=== PATIENT | female | born 1990 ===

== ENCOUNTER 2022-02-22 15:20 | Inpatient (IN) ==
[2022-02-18 12:40] LABS: Glucose,Urine (UA) Negative (Negative); Ketones,Urine Negative (Negative); Nitrite,Urine Negative (Negative); Protein,Urine Negative (Negative); Urine Appearance Clear (Clear); Urine Color Yellow (Yellow)
[2022-02-18 12:41] LABS: Bilirubin,Urine Negative (Negative); Blood, Urine Moderate mg/dL (Negative); Urine Urobilinogen 0.2 eU/dL (<2.0)
[2022-02-18 12:45] LABS: Bacteria,Urine Occasional /HPF (Few); Mucus,Urine Occasional /LPF (Occasional); RBC,Urine 9 /HPF (0-4); Squamous Epithelial Cell,Urine Occasional /HPF (0-10)
[2022-02-18 12:50] LABS: Basophils % 0.4 % (0.0-0.8); Eosinophils % 0.8 % (0.00-10.9); Hematocrit 22.4 VOL% (35.7-47.0); Hemoglobin 6.5 GM/DL (12.0-16.0); Immature Granulocytes % 0.2 %; Immature Granulocytes Absolute 0.01 #; Lymphocytes # 2.1 10*3/uL (1.4-4.0); Lymphocytes % 42.8 % (21.3-54.2); Mean Corpuscular Volume 75.7 FL (87-102); Mean Platelet Volume 8.9 FL (9.6-12.0); Monocytes # 0.4 10*3/uL (0.11-0.8); Monocytes % 7.7 % (1.7-12.7); Neutrophils % 48.1 % (38.7-73.9); Platelet Count 326 T/CUMM (130-400); Red Blood Count 2.96 MC/CUMM (3.8-5.5); Red Cell Distribution Width 15.5 % (9.3-17.3); White Blood Count 4.9 T/CUMM (4-12)
[2022-02-18 13:29] LABS: Albumin 3.7 G/DL (3.4-5.0); Bilirubin,Total 0.4 MG/DL (0.20-1.00); Calcium 8.3 MG/DL (8.5-10.1); Osmolality,Calculated 280.1 MOS/KG (273-304); Potassium 3.4 MMOL/L (3.5-5.1); Risk Ratio 5.81; Total Protein 7.1 G/DL (6.4-8.2); VLDL Cholesterol 29.4 MG/DL
[2022-02-18 14:16] LABS: HIV Antigen/Antibody Result Nonreactive (Nonreactive)
[2022-02-22] MEDS ORDERED: SODIUM CHLORIDE 0.9% 1,000 ML IV PRN (15:58)
[2022-02-22 16:33] LABS: Basophils % 0.5 % (0.0-0.8); Eosinophils # 0.1 10*3/uL (0.0-0.87); Eosinophils % 1.9 % (0.00-10.9); Hematocrit 23.6 VOL% (35.7-47.0); Hemoglobin 6.7 GM/DL (12.0-16.0); Immature Granulocytes % 0.5 %; Immature Granulocytes Absolute 0.02 #; Lymphocytes # 1.7 10*3/uL (1.4-4.0); Lymphocytes % 38.2 % (21.3-54.2); Mean Corpuscular HGB Conc 28.4 GM/DL (32-36); Mean Corpuscular Volume 75.2 FL (87-102); Mean Platelet Volume 9.3 FL (9.6-12.0); Monocytes # 0.3 10*3/uL (0.11-0.8); Monocytes % 6.9 % (1.7-12.7); Platelet Count 325 T/CUMM (130-400); Red Blood Count 3.14 MC/CUMM (3.8-5.5); Red Cell Distribution Width 15.6 % (9.3-17.3); White Blood Count 4.3 T/CUMM (4-12)
[2022-02-22 17:02] LABS: Anisocytosis 1+; Hypochromia 1+; Polychromasia 1+
[2022-02-22 17:03] LABS: Elliptocytes Few; Platelet Estimate Adequate
[2022-02-23 08:27] LABS: Eosinophils # 0.2 10*3/uL (0.0-0.87)
[2022-02-23 08:35] LABS: Basophils % 0.2 % (0.0-0.8); Eosinophils % 3.3 % (0.00-10.9); Hematocrit 32.6 VOL% (35.7-47.0); Immature Granulocytes % 0.4 %; Immature Granulocytes Absolute 0.02 #; Lymphocytes # 2.1 10*3/uL (1.4-4.0); Lymphocytes % 46.2 % (21.3-54.2); Mean Corpuscular HGB Conc 30.4 GM/DL (32-36); Mean Corpuscular Volume 79.9 FL (87-102); Mean Platelet Volume 9.6 FL (9.6-12.0); Monocytes # 0.3 10*3/uL (0.11-0.8); Monocytes % 7.4 % (1.7-12.7); NRBC # 0.03 10*3/uL; Neutrophils % 42.5 % (38.7-73.9); Platelet Count 303 T/CUMM (130-400); White Blood Count 4.6 T/CUMM (4-12)
[2022-02-23 08:44] LABS: Hemoglobin 9.9 GM/DL (12.0-16.0); Red Blood Count 4.08 MC/CUMM (3.8-5.5)
[2022-02-23] MEDS ORDERED: SODIUM PHOSPHATE ENEMA 133 ML BOTTLE RECTAL ONE (21:02)
[2022-02-23] MEDS ORDERED: BISACODYL 10 MG SUPP RECTAL ONE (23:59)
[2022-02-24] MEDS: SIMETHICONE CHEW 80 MG TABLET PO PRN (00:12)
[2022-02-24] MEDS: PANTOPRAZOLE 40 MG TABLET PO SCH ×2 (00:27→08:30)
[2022-02-24] MEDS: LACTATED RINGERS 1,000 ML IV SCH ×3 (06:10→20:49)
[2022-02-24] MEDS ORDERED: AMPICILLIN/SULBACTAM 3,000 MG in SODIUM CHLORIDE 0.9% 100 ML IV ONE (08:00)
[2022-02-24] MEDS: DOCUSATE SODIUM 100 MG CAPSULE PO SCH ×2 (08:30→21:59)
[2022-02-24] MEDS ORDERED: LIDOCAINE 2% 5 ML VIAL ONE ×2 (12:58→14:08)
[2022-02-24] MEDS ORDERED: BUPIVACAINE MPF 0.5% 30 ML VIAL ONE (12:58)
[2022-02-24] MEDS ORDERED: fentaNYL 100 MCG/2 ML VIAL ONE ×3 (12:59→17:19)
[2022-02-24] MEDS ORDERED: DEXAMETHASONE 4 MG/1 ML VIAL ONE ×2 (12:59→14:08)
[2022-02-24] MEDS ORDERED: MIDAZOLAM 2 MG/2 ML VIAL ONE ×2 (12:59→15:39)
[2022-02-24] MEDS ORDERED: ROPIVACAINE 0.5% 30 ML VIAL ONE (13:03)
[2022-02-24] MEDS ORDERED: ePHEDrine 50 MG/ML VIAL ONE (14:07)
[2022-02-24] MEDS ORDERED: DESFLURANE 1 UNIT/15 MINUTE INH ONE ×2 (14:08→16:25)
[2022-02-24] MEDS ORDERED: ROCURONIUM 50 MG/5 ML VIAL IV ONE (14:08)
[2022-02-24] MEDS ORDERED: propofoL 200 MG/20 ML VIAL IV ONE (14:08)
[2022-02-24] MEDS ORDERED: ONDANSETRON 4 MG/2 ML VIAL ONE ×2 (14:08→19:23)
[2022-02-24] MEDS ORDERED: GLYCOPYRROLATE 0.4 MG/2 ML VIAL ONE (14:23)
[2022-02-24] MEDS ORDERED: NEOSTIGMINE 10 MG/10 ML VIAL ONE (14:23)
[2022-02-24] MEDS ORDERED: LACTATED RINGERS 1,000 ML IV ONE ×2 (14:23→17:10)
[2022-02-24] MEDS ORDERED: SODIUM CHLORIDE 0.9% 1,000 ML IV PRN (14:37)
[2022-02-24] MEDS ORDERED: METHYLENE BLUE 10 ML VIAL IV ONE (16:56)
[2022-02-24] MEDS ORDERED: FUROSEMIDE 20 MG/2 ML VIAL ONE (17:06)
[2022-02-24] MEDS ORDERED: PROMETHAZINE INJ 25 MG in SODIUM CHLORIDE 0.9% 50 ML IV PRN (19:17)
[2022-02-24] MEDS ORDERED: ONDANSETRON 4 MG/2 ML VIAL IV PRN ×2 (19:17→20:07)
[2022-02-24] MEDS ORDERED: SEVOFLURANE 1 UNIT/15 MINUTE INH ONE (19:25)
[2022-02-24] MEDS ORDERED: MEPERIDINE 50 MG/1 ML VIAL IV PRN (19:36)
[2022-02-24] MEDS: HYDROmorphone 1 MG/1 ML SYRINGE IV PRN ×5 (19:50→20:20)
[2022-02-24 20:02] LABS: Hematocrit 28.3 VOL% (35.7-47.0); Hemoglobin 8.8 GM/DL (12.0-16.0)
[2022-02-24] MEDS ORDERED: IBUPROFEN 800 MG TABLET PO PRN (20:07)
[2022-02-24] MEDS ORDERED: ACETAMINOPHEN 325 MG TABLET PO PRN (20:07)
[2022-02-24] MEDS ORDERED: BISACODYL 10 MG SUPP RECTAL PRN (20:07)
[2022-02-24] MEDS ORDERED: DOCUSATE SODIUM 100 MG CAPSULE PO PRN (20:07)
[2022-02-24] MEDS ORDERED: BENZOCAINE/MENTHOL LOZENGE 18/BOX PO PRN (20:07)
[2022-02-24] MEDS ORDERED: PROMETHAZINE 25 MG/1 ML VIAL ONE (20:20)
[2022-02-25 04:33] LABS: Basophils % 0.2 % (0.0-0.8); Hematocrit 28.9 VOL% (35.7-47.0); Hemoglobin 8.9 GM/DL (12.0-16.0); Immature Granulocytes % 0.5 %; Immature Granulocytes Absolute 0.06 #; Lymphocytes % 8.2 % (21.3-54.2); Mean Corpuscular HGB Conc 30.8 GM/DL (32-36); Mean Corpuscular Volume 82.8 FL (87-102); Mean Platelet Volume 9.6 FL (9.6-12.0); Monocytes # 0.5 10*3/uL (0.11-0.8); Monocytes % 3.9 % (1.7-12.7); Neutrophils % 87.2 % (38.7-73.9); Platelet Count 231 T/CUMM (130-400); Red Blood Count 3.49 MC/CUMM (3.8-5.5); Red Cell Distribution Width 16.6 % (9.3-17.3); White Blood Count 12.7 T/CUMM (4-12)
[2022-02-25] MEDS: HYDROmorphone 1 MG/1 ML SYRINGE IV PRN ×5 (05:19→16:15)
[2022-02-25] MEDS: LACTATED RINGERS 1,000 ML IV SCH ×2 (07:00→19:12)
[2022-02-25 07:37] LABS: Albumin 2.7 G/DL (3.4-5.0); Bilirubin,Total 0.6 MG/DL (0.20-1.00); Calcium 7.8 MG/DL (8.5-10.1); Osmolality,Calculated 280.3 MOS/KG (273-304); Potassium 4.4 MMOL/L (3.5-5.1); Total Protein 5.2 G/DL (6.4-8.2)
[2022-02-25] MEDS ORDERED: SODIUM CHLORIDE 0.9% 1,000 ML IV PRN (12:05)
[2022-02-25] MEDS: DOCUSATE SODIUM 100 MG CAPSULE PO SCH (12:57)
[2022-02-25] MEDS: PANTOPRAZOLE 40 MG TABLET PO SCH (12:57)
[2022-02-25] MEDS ORDERED: ACETAMINOPHEN 500 MG TABLET PO PRN (14:30)
[2022-02-25] MEDS ORDERED: ACETAMINOPHEN 500 MG TABLET ONE (14:43)
[2022-02-25] MEDS: METOCLOPRAMIDE 10 MG/2 ML VIAL IV SCH (17:17)
[2022-02-25 18:58] LABS: Hematocrit 26.6 VOL% (35.7-47.0); Hemoglobin 8.3 GM/DL (12.0-16.0)
[2022-02-25] MEDS: OXYBUTYNIN XL 10 MG TABLET PO SCH (21:33)
[2022-02-26] MEDS: DOCUSATE SODIUM 100 MG CAPSULE PO SCH ×3 (00:33→21:14)
[2022-02-26] MEDS: METOCLOPRAMIDE 10 MG/2 ML VIAL IV SCH ×4 (00:38→23:54)
[2022-02-26] MEDS ORDERED: SODIUM CHLORIDE 0.9% 1,000 ML IV PRN (09:48)
[2022-02-26] MEDS: PANTOPRAZOLE 40 MG TABLET PO SCH (12:42)
[2022-02-26 21:03] LABS: Hematocrit 29.2 VOL% (35.7-47.0)
[2022-02-26] MEDS: OXYBUTYNIN XL 10 MG TABLET PO SCH (21:14)
[2022-02-27] MEDS: FERROUS SULFATE 325 MG TABLET PO SCH (08:29)
[2022-02-27] MEDS: DOCUSATE SODIUM 100 MG CAPSULE PO SCH ×3 (08:29→23:50)
[2022-02-27] MEDS: MAGNESIUM HYDROXIDE SUSP 30 ML UDCUP PO PRN ×2 (08:29→19:41)
[2022-02-27] MEDS: PANTOPRAZOLE 40 MG TABLET PO SCH (08:29)
[2022-02-27] MEDS: METOCLOPRAMIDE 10 MG/2 ML VIAL IV SCH (08:30)
[2022-02-27] MEDS: METOCLOPRAMIDE 10 MG TABLET PO SCH (16:26)
[2022-02-27] MEDS: OXYBUTYNIN XL 10 MG TABLET PO SCH ×2 (19:41→23:50)
[2022-02-27] MEDS: SIMETHICONE CHEW 80 MG TABLET PO PRN (19:41)
[2022-02-27] MEDS: oxyCODONE/ACETAMINOPHEN 5-325 MG TABLET PO PRN (21:02)
[2022-02-28] MEDS: METOCLOPRAMIDE 10 MG TABLET PO SCH ×2 (00:25→08:57)
[2022-02-28] MEDS: oxyCODONE/ACETAMINOPHEN 5-325 MG TABLET PO PRN (01:12)
[2022-02-28] MEDS: IBUPROFEN 800 MG TABLET PO PRN ×2 (01:12→08:59)
[2022-02-28] MEDS: SIMETHICONE CHEW 80 MG TABLET PO PRN ×2 (06:39→08:57)
[2022-02-28] MEDS: MAGNESIUM HYDROXIDE SUSP 30 ML UDCUP PO PRN (08:57)
[2022-02-28] MEDS: FERROUS SULFATE 325 MG TABLET PO SCH (08:57)
[2022-02-28] MEDS: DOCUSATE SODIUM 100 MG CAPSULE PO SCH (08:57)
[2022-02-28] MEDS: PANTOPRAZOLE 40 MG TABLET PO SCH (08:58)
[2022-02-28 11:46] VITALS: BP 95/50
== END 2022-02-28 14:08 | disposition home or self-care (01) | DRG 742 ==
LOC: N.LDOUT 15:20 → N.OB 15:24
PROVIDERS: ADMIT Obstetrics & Gynecology; ATTEND Obstetrics & Gynecology